=== PATIENT | female | born 2000 | race Caucasian/White ===

== ENCOUNTER 2025-01-05 19:27 | Emergency (ER) | payer BC, MEDICAID, SELFPAY ==
[2025-01-05 19:31] VITALS: BP 110/62; PULSE 100; RESP 14; TEMP 36.7; O2SAT 90
--- OUTSIDE RECORDS SUMMARY | 2025-01-05 19:32 | XMS_ITS | Clinical Summary ---
Author Organization [facility] Address [address] [place] [address] Care Team Providers [employer] Radio Operator Name Role Phone Unavailable Primary Care Provider Unavailabl e Allergies No known active allergies Medications sertraline (ZOLOFT) 50 mg tablet Take 50 mg by mouth daily. Active ARIPiprazole (ABILIFY) 5 mg tablet Take 5 mg by mouth daily. Active HYDROXYZINE HCL ORAL Take 20 % by mouth daily. Active Active Problems No known active problems Encounters Date Type Department Care Team Description 11/27/2024 External Device Data [facility]STRACTION Provider, Abstract 11/26/2024 External Device Data [facility] Provider, Abstract 10/29/2024 External Device Data [facility] Provider, Abstract from Last 3 Months Immunizations Immunization Administration Dates Next Due Dt Dtp Dtap Vaccine 01/08/2001,2000,2000 HIB, Unspecified Formulation 2000,09/05/19 01 Hepatitis B Vaccine 2000,2000 IPV/OPV 2000,2000 Pneumococcal 7-valent conjugate vaccine IM 01/08,2000,2000 Social History Tobacco Use Types Packs/Day Years Used Date Smoking Tobacco: Every Day Cigarettes Tobacco Cessation:Ready to Q uit: Not Asked; Counseling Given: Not Answered Comments No Sex and Gender Information Value Date Recorded Sex Assigned at Not on file 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 Gender Identity Not on file Sexual Orientation Not on file Last Filed Vital Signs Vital Sign Reading Time Taken Comments Blood Pressure 120/72 10/25/2023 8:37 AM CDT Pulse 53 10/25/2023 8:37 AM CDT Temperature 36.6 C (97.9 F) 10/25/2023 8:37 AM CDT Respiratory Rate 18 10/25/2023 8:37 AM CDT Oxygen Saturation 95% 10/25/2023 8:37 AM CDT Inhaled Oxygen Concentration - - Weight 63.6 kg (140 lb 3.2 oz) 10/25/2023 8:37 A M CDT Height 162.6 cm (5' 4 ) 10/25/2023 8:37 AM CDT Body Mass Index 24.07 10/25/2023 8:37 AM CDT Plan of Treatment Health Maintenance Due Date Last Done Comments HEPATITIS B VACCINES (3 of 3 - 3-dose series) 01/02/2001 2000, 2000 HPV VACCINES (1 - 3-dose series) 2015 DTAP/TDAP/TD VACCINES (4 - Tdap) 2019 01/08/2001, 2000, 2000 CERVICAL CANCER SCREENING 2021 HPV/Cotest (21-29) 2021 PAP SMEAR 2021 INFLUENZA VACCINE (#1) 2024 Insurance [facility] MEDICAID FORMERLY [facility] MEDICAID
[2025-01-05] MEDS: metoclopramide 5 mg/mL SDV 2 mL 10 MG IVP (20:00)
--- NOTE | 2025-01-05 20:00 | ED_ITS ---
HPI - Nausea/Vomiting/Diarrhea 2 General: Chief complaint: Nausea/Vomiting/Diarrhea Stated complaint: N/V Weak, Can't keep anything down Time Seen by Provider: 01/05/25 19:28 Source: patient Mode of arrival: ambulatory Limitations: no limitations History of Present Illness: This patient is a 24-year-old female with no pertinent past medical history who presents to the emergency department with persistent nausea and vomiting throughout the day. She reports multiple episodes of emesis, noting green bile, with no blood. Symptoms began after heavy alcohol consumption last night, including approximately 6 shots and a mixed drink. She also reports that initially she had some mild lower abdominal cramping coinciding with the onset of her menses today, but that this has since subsided. She denies fever, diarrhea, recent marijuana use, or any possibility of . She has no other associated symptoms, and review of systems is otherwise negative. MD elicited complaint: nausea and vomiting Onset (ago): hour(s) Description of vomiting: bilious Associated nausea: Yes Associated abdominal pain: Yes Location of pain: RLQ, LLQ and Suprapubic Pain consistency: now resolved Severity: mild Quality: cramping Context: other (Alcohol use last night, started menses today) Associated symtoms: Reports nausea; Denies chest pain, diaphoresis, dizziness, dysuria, headache(s) or palpitations Related Data Previous Rx's ?Medication ?Instructions ?Recorded ascorbic acid (vitamin C) 250 mg 250 mg PO DAILY #30 t abs 01/05/25 tablet ferrous sulfate 325 mg (65 mg 325 mg PO DAILY #30 tabs 01/05/25 iron) tablet,delayed release ondansetron HCl 4 mg tablet 4 mg PO Q8H #30 tabs 01/05 Allergies Allergy/AdvReac Type Severity Reaction Status Date / Time No Known Allergies Allergy Verified 01/05/25 19:35 Review of Systems 2 General: Reports: 10 or more systems reviewed and unremarkable except in HPI and below Const: Denies: fever(s), chills, change in appetite, change in weight or diaphoresis ENMT: Denies: throat pain or hoarseness Card: Denies: chest pain, palpitations or lightheadedness Resp: Denies: dyspnea, productive cough or wheezing GI: Reports: abdominal pain, nausea and vomiting; Denies: hematemesis, heartburn, diarrhea or constipation : Denies: flank pain, difficulty voiding, dysuria, urinary frequency or urinary urgency Musc: Denies: neck pain or back pain Skin/Breast: Denies: rash or new lesions Neuro: Denies: headache(s) or dizziness [facility] ED 2 Female Reproductive History: Date of last menstrual period: 01/05/25 Physical Exam 2 Const: COMMON NORMALS: no acute distress, average body habitus, patient oriented x3, no limitations, healthy appearing, alert and well nourished G ENERAL APPEARANCE: cooperative and comfortable ORIENTATION/CONSCIOUSNESS: Yes awake Eye: COMMON NORMALS: Equal, round and reactive pupils present, EOMs intact bilaterally, conjunctivae normal and normal visual sullivan by confrontation C ONJUNCTIVA: Yes conjunctivae normal PUPIL: Yes Equal, round and reactive pupils present Neck/C-Spine: COMMON NORMALS: full ROM, supple, no meningeal signs and no JVD Resp: COMMON NORMALS: normal respiratory effort, No retractions, No use of accessory muscles and clear to auscultation bilaterally AUSCULTATION: clear to auscultation bilaterally, no crackles, no rales, no rhonchi and no wheezes Cardio: COMMON NORMALS: no JVD, regular rate, regular rhythm, No gallops present (Cardio), No clicks present (Cardio), No murmurs present (Cardio), No rub (Cardio) and Peripheral pulses 2+ throughout RATE: regular rate R HYTHM: regular rhythm PERIPHERAL PULSES: Peripheral pulses 2+ throughout GI: COMMON NORMALS: Normal to inspection, nondistended, normoactive bowel sounds present, Soft to palpation, non-tender, No hepatosplenomegaly present and no masses AUSCULTATION: Yes normoactive bowel sounds PALPATION: Yes Soft to palpation, No Guarding due to palpation present (GI), No Rigid due to palpation and Yes No hepatosplenomegaly present RECTAL EXAM: deferred : COMMON NORMALS: Yes no CVA tenderness BLADDER/KIDNEY EXAM: Yes no CVA tenderness Back/Pelvis: COMMON NORMALS: no CVA tenderness Extremity: COMMON NORMALS: normal to inspection and full ROM Neuro: COMMON NORMALS: patient oriented x3, moves all extremities, no focal motor deficits and no sensory deficits noted SENSORIUM/ORIENTATION: Yes alert MENINGEAL SIGNS: Yes no meningeal signs Psych: COMMON NORMALS: mental status grossly normal, cooperative and speech normal SPEECH: Yes normal speech Skin: COMMON NORMALS: no rashes or lesions noted GENERAL SKIN EXAM: no rashes or lesions noted Course 2 Vital Signs: Vital signs: Vital Signs Temperature 98.1 F 01/05/25 19:31 Pulse Rate 86 01/06/25 00:10 Respiratory Rate 14 01/05/25 19:31 Blood Pressure 107/65 01/06/25 00:10 Pulse Oximetry 100 01/06/25 00:10 Oxygen Delivery Me thod Room Air 01/05/25 22:30 MDM - Nausea/Vomiting/Diarrhea Medical Decision Making This is a 24-year-old female who presented with acute onset nausea and vomiting of bilious material, multiple episodes after heavy alcohol intake last night, this is also coinciding with her onset of menses. Initial concern included alcohol induced gastritis, viral gastroenteritis, pancreatitis, small bowel obstruction, and gynecologic pathology such as ectopic or ovarian torsion. Patient denied possibility , she had no abdominal pain on exam, making torsion appendicitis and obstruction less likely. Labs notable for leukocytosis with neutrophilia, likely stress response to vomiting, and microcytic, hypochromic anemia with thrombocytosis, consistent with iron deficiency anemia. I had ordered ferritin and TIBC, there were issues with lab so these were omitted. CMP normal, ruling out significant electrolyte derangements, renal injury, or acute hepatobiliary/pancreatic pathology. Patient improved significantly with IV fluids and antiemetics, is tolerating p.o., and has had stable vitals with no abdominal tenderness. She has been requesting something to eat as well as her appetite has returned. At this time, no indication for admission or emergent imaging. Plan is for discharge home with supportive care, oral antiemetics, NSAIDs for dysmenorrhea, initiation of oral iron supplementation along with vitamin C, and outpatient follow-up for iron studies and anemia management. She will be established with primary care for this purpose. Strict return precautions discussed, including recurrent vomiting, inability to tolerate fluids, new abdominal pain, fever, or GI bleeding. Patient and mother agrees with this plan at this time. Lab Data 01/05/25 19:57 01/05/25 19:57 Laboratory Results WBC 14.94 10^3/uL (3.29-11.43) H 01/05/25 19:57 RBC 4.60 10^6/uL (3.85-5.65) 01/05/25 19:57 Hgb 8.30 g/dL (11.27-16.99) L 01/05/25 19:57 Hct 30.6 % (36-47) L 01/05/25 19:57 MCV 66.5 fl (85-98) L 01/05/25 19:57 MCH 18.0 pg (27-33) L 01/05/25 19:57 MCHC 27.1 g/dL (30-55) L 01/05/25 19:57 RDW 19.8 % (12.1-15.1) H 01/05/25 19:57 Plt Count 444 10^3/cmm (157-399) H 01/05/25 19:57 MPV 8.9 fL (7.4-10.4) 01/05/25 19:57 Neut % (Auto) 95.7 % 01/05/25 19:57 Lymph % (Auto) 2.5 % 01/05/25 19:57 [place] % (Auto) 1.2 % 01/05/25 19:57 Eos % (Auto) 0.0 % 01/05/25 19:57 Baso % (Auto) 0.1 % 01/05/25 19:57 Neut # (Auto) 14.29 10^3/uL (1.8-7.7) H 01/05/25 19:57 Lymph # (Auto) 0.4 10^3/uL (0.8-4.8) L 01/05/25 19:57 [place] # (Auto) 0.2 10^3/uL (0.2-0.9) 01/05/25 19:57 Eos # (Auto) 0.0 10^3/uL (0.0-0.8) 01/05/25 19:57 Baso # (Auto) 0.0 10^3/uL (0.0-0.1) 01/05/25 19:57 Nucleated RBC % (auto) 0 % 01/05/25 19:57 Nucleated RBCs # 0.0 /100WBC 01/05/25 19:57 Sodium 143 mmol/L (136-145) 01/05/25 19:57 Potassium 3.8 mmol/L (3.5-5.1) 01/05/25 19:57 Chloride 107 mmol/L (98-107) 01/05/25 19:57 Carbon Dioxide 20 mmol/L (22-29) L 01/05/25 19:57 Anion Gap 19.8 (5-19) H 01/05/25 19:57 BUN 9 mg/dL (6-20) 01/05/25 19:57 Creatinine 0.5 mg/dL (0.5-0.9) 01/05/25 19:57 GFR Calculation 151.6 mL/min (90-130) H 01/05/25 19:57 Glucose 155 mg/dL (65-115) H 01/05/25 19:57 Calculated Osmolality 298 mOsm/kg (285-295) H 01/05/25 19:57 Calcium 9.7 mg/dL (8.5-10.5) 01/05/25 19:57 Iron 17 ug/dL (37-145) L 01/05/25 19:57 TIBC 450 mcg/dl 01/05/25 19:57 % Saturation 3.7 % (20-50) L 01/05/25 19:57 Unsat Iron Binding 433 ug/dL (112-347) H 01/05/25 19:57 Ferritin 8 ng/mL (15-150) L 01/05/25 19:57 Total Bilirubin 0.5 mg/dL (0.15-1.2) 01/05/25 19:57 AST 19 U/L (0-32) 01/05/25 19:57 ALT 13 U/L (0-33) 01/05/25 19:57 Alkaline Phosphatase 68 U/L (35-105) 01/05/25 19:57 Total Protein 7.8 g/dL (6.6-8.7) 01/05/25 19:57 Albumin 4.8 g/dL (3.5-5.2) 01/05/25 19:57 Globulin 3.0 g/dL (1.3-4.6) 01/05/25 19:57 Lipase 16 U/L (13-60) 01/05/25 19:57 HCG, Qual Negative (Negative) 01/05/25 19:57 Urine Color Yellow (Yellow) 01/05/25 20:54 Urine Appearance Clear (CLEAR) 01/05/25 20:54 Urine pH 6.0 (5-7) 01/05/25 20:54 Ur Specific Protection 1.028 (1.005-1.030) 01/05/25 20:54 Urine Protein 1+ (Negative) A 01/05/25 20:54 Urine Glucose (UA) Negative (Normal) 01/05/25 20:54 Urine Ketones Trace (Negative) 01/05/25 20:54 Urine Blood 2+ (Negative) A 01/05/25 20:54 Urine Nitrate Negative (Negative) 01/05/25 20:54 Urine Bilirubin Negative (Negative) 01/05/25 20:54 Urine Urobilinogen 1.0 mg/dL (Negative) 01/05/25 20:54 Ur Leukocyte Esterase Negative (Negative) 01/05/25 20:54 Urine RBC 21-50 /hpf (0-2) H 01/05/25 20:54 Urine WBC 11-20 /hpf (0-5) H 01/05/25 20:54 Ur Squamous Epith Cells 0-5 /hpf (0-5) 01/05/25 20:54 Amorphous Sediment Not Reportable 01/05/25 20:54 Urine Bacteria None seen /hpf (NONE) 01/05/25 20:54 Hyaline Casts 1.65 /lpf 01/05/25 20:54 No radiology studies performed this visit Discharge Plan Discharge Patient Disposition: Home Clinical Impression: Nausea & vomiting Qualifiers: Vomiting type: bilious vomiting Qualified Code(s): R11.14 - Bilious vomiting Iron deficiency anemia Qualifiers: Iron deficiency anemia type: unspecified iron deficiency Qualified Code(s): D 50.9 - Iron deficiency anemia, unspecified Condition: Stable Prescriptions: New ferrous sulfate 325 mg (65 mg iron) tablet,delayed release (DR/EC) 325 mg PO DAILY Qty: 30 0RF ondansetron HCl 4 mg tablet 4 mg PO Q8H Qty: 30 0RF ascorbic acid (vitamin C) 250 mg tablet 250 mg PO DAILY Qty: 30 0RF Discharge Orders: Discharge ED (Routine); Ordered 01/05/25 Ordered By: Ron Banks Patient Instructions: Patient Portal & Theresa Instructions Activity Restrictions/Additional Instructions: Iron Deficiency Anemia Discharge Discharge Instructions: Iron Deficiency Anemia with Nausea and Vomiting Diagnosis and Rationale: This 24-year-old female presented with persistent nausea and vomiting and was found to have anemia, with a history of iron deficiency and no prior iron supplementation. The most common causes of iron deficiency in young women are menstrual blood loss and dietary insufficiency. Oral iron is the first-line therapy for iron deficiency anemia in stable outpatients, unless there is intolerance, malabsorption, or ongoing blood loss. Medications Initiated: - Ferrous sulfate 325 mg PO once daily (provides 65 mg elemental iron per tablet). - Administration: Take in the morning, ideally on an empty stomach to maximize absorption. If gastrointestinal side effects occur, it may be taken with food, though absorption may be reduced. - Dietary considerations: Avoid tea, coffee, and calcium-containing foods (e.g., dairy) within one hour of taking iron, as these inhibit absorption. - Duration: Continue for at least 3?6 months, or until ferritin and hemoglobin normalize, unless otherwise directed. - Vitamin C 250 mg PO once daily with iron. - Rationale: Vitamin C may enhance iron absorption by maintaining iron in the ferrous state and creating an acidic gastric environment, though recent RCTs show no clinically significant difference in hemoglobin recovery when compared to iron alone. Nonetheless, the [place] [employer] recommends co-administration. - Ondansetron (Zofran) 4?8 mg PO as needed for nausea. - Administration: May be taken up to every 8 hours as needed for nausea or vomiting. Do not exceed 24 mg in 24 hours. For severe hepatic impairment, maximum daily dose is 8 mg. - Adverse effects: Monitor for constipation, headache, or QT prolongation. Home Management and Supportive Care: - Rehydration: - Use oral rehydration solution (ORS) for mild to moderate dehydration, as recommended by the [employer] of [place]. Commercially available ORS (e.g., Pedialyte) is preferred over sports drinks or juices. - Adults: Drink ORS ad libitum, up to 2?4 L/day for rehydration and maintenance. Replace ongoing losses from vomiting with additional ORS as needed. - Resume a normal diet as tolerated once rehydration is complete. - Monitor for iron side effects: - Common adverse effects of oral iron include nausea, constipation, diarrhea, abdominal pain, and dark stools. These are dose-dependent and may affect adherence. - If intolerable side effects occur, consider alternate-day dosing or switching to a different iron formulation. Expected Course and Follow-Up: - Reticulocytosis typically begins within 4?5 days of iron therapy, with hemoglobin improvement by week 2. Full repletion of iron stores may require 3?6 months. - If no hematologic response is seen within 4 weeks, assess for nonadherence, ongoing blood loss, or malabsorption. Return Precautions: - Return to the emergency department or contact your provider immediately for: - Persistent or worsening vomiting preventing oral intake or medication absorption. - Signs of severe dehydration: dizziness, confusion, decreased urine output, rapid heartbeat, or fainting. - Severe abdominal pain, melena, hematemesis, or new/worsening symptoms. - Allergic reaction to medications (rash, swelling, difficulty breathing). - No improvement in symptoms or hemoglobin after 4 weeks of therapy. Additional Considerations: - If oral iron is not tolerated or ineffective, intravenous iron may be considered, especially in cases of malabsorption or ongoing blood loss. - Address underlying causes of iron deficiency (e.g., menstrual losses, dietary insufficiency) as part of long-term management. Patient Education: - Adherence to iron therapy is critical for recovery. - Expect dark stools with iron; this is not a sign of bleeding. - Maintain hydration and nutrition during recovery. Follow-Up: - Schedule outpatient follow-up in 2?4 weeks for repeat CBC and iron studies. - Continue therapy as directed until laboratory normalization and symptom resolution. Print Language: Cymraes Coding Level of Care Code ED Front Desk Person for Curtis Correa
[2025-01-05 20:02] VITALS: BP 104/64; PULSE 82; O2SAT 100
[2025-01-05 20:06] LABS: Hematocrit 30.6 % (36-47); Hemoglobin 8.30 g/dL (11.27-16.99); Mean Corpuscular HGB Conc 27.1 g/dL (30-55); Mean Corpuscular Hemoglobin 18.0 pg (27-33); Mean Corpuscular Volume 66.5 fl (85-98); Nucleated Red Blood Cells % 0 %; Platelet Count 444 10^3/cmm (157-399); Red Blood Count 4.60 10^6/uL (3.85-5.65); White Blood Count 14.94 10^3/uL (3.29-11.43)
--- NOTE | 2025-01-05 20:16 | PC.NURSE ---
asked pt for urine sample, pt voiced she would try later.
[2025-01-05 20:22] LABS: Alanine Aminotransferase 13 U/L (0-33); Albumin Level 4.8 g/dL (3.5-5.2); Alkaline Phosphatase 68 U/L (35-105); Anion Gap 19.8 (5-19); Aspartate Amino Transferase 19 U/L (0-32); Blood Urea Nitrogen 9 mg/dL (6-20); Calcium 9.7 mg/dL (8.5-10.5); Carbon Dioxide 20 mmol/L (22-29); Chloride 107 mmol/L (98-107); Creatinine Clr Calc Pharmacy 156.9767; Globulin 3.0 g/dL (1.3-4.6); Glucose 155 mg/dL (65-115); Lipase 16 U/L (13-60); Osmolality Calculated 298 mOsm/kg (285-295); Potassium 3.8 mmol/L (3.5-5.1); Sodium 143 mmol/L (136-145); Total Protein 7.8 g/dL (6.6-8.7)
[2025-01-05 20:28] LABS: HCG, Serum Qual Negative (Negative)
[2025-01-05 20:30] VITALS: BP 101/53; PULSE 74; O2SAT 98
[2025-01-05 21:00] VITALS: BP 109/67; PULSE 85; O2SAT 96
[2025-01-05 21:19] LABS: Glucose Urine UA Negative (Normal); Nitrate Urine Negative (Negative); Specific Gravity, Urine 1.028 (1.005-1.030)
[2025-01-05 21:24] LABS: Add Urine Microscopic? YES
[2025-01-05 21:30] VITALS: BP 98/63; PULSE 86; O2SAT 96
[2025-01-05 22:30] VITALS: BP 95/55; PULSE 96; O2SAT 98
--- NOTE | 2025-01-05 22:51 | PC.NURSE ---
Pt requesting water, AMILCAR Banks notified and okayed.
[2025-01-05] MEDS: ferrous sulfate EC 325 mg Tablet PO (23:50)
[2025-01-06 00:08] LABS: Ferritin 8 ng/mL (15-150); Iron 17 ug/dL (37-145); Total Iron Binding Capacity 450 mcg/dl; Unsaturated Iron Binding 433 ug/dL (112-347)
[2025-01-06 00:10] VITALS: BP 107/65; PULSE 86; O2SAT 100
--- NOTE | 2025-01-10 09:11 | PC.NURSE ---
PCP referral sent to family Med
== END 2025-01-06 00:11 | disposition home or self-care (01) ==
PROVIDERS: Emergency Provider Physician Assistant
DX: R11.14 Bilious vomiting (principal); D50.9 Iron deficiency anemia, unspecified
CPT/HCPCS: 36415; 80053; 81001; 82728; 83540; 83550; 83690; 84703; 85025; 87086; 96361; 96374; 99284; J2765; J7030; J9999